=== PATIENT | female | born 1980 | race Caucasian/White ===

== ENCOUNTER → 2017-07-28 19:57 | Outpatient (CLI) | payer MEDICAID, SELFPAY | PROVIDERS: Family Provider Student in an Organized Health Care Education/Training Program; PCP Student in an Organized Health Care Education/Training Program; Visit Provider Student in an Organized Health Care Education/Training Program | DX: G47.10 Hypersomnia, unspecified (principal); R06.83 Snoring; R06.00 Dyspnea, unspecified; R53.83 Other fatigue | CPT/HCPCS: 95810 ==

== ENCOUNTER 2017-12-10 07:28 | Emergency (ER) | payer MEDICAID, SELFPAY ==
[2017-12-10 07:30] VITALS: BP 112/73; PULSE 63; RESP 18; TEMP 36.5; O2SAT 100; BMI 25.4
--- NOTE | 2017-12-10 08:05 | CT_ITS ---
STUDY: CT ABDOMEN AND PELVIS WITHOUT CONTRAST REASON FOR EXAM: Female, 37 years old. Abdominal pain, nausea, vomiting, diarrhea RADIATION DOSAGE (If Supplied By Facility): CTDIvol = ( 6.76 ) mGy, DLP = ( 314.15 ) mGycm TECHNIQUE: Transaxial images were obtained from the dome of the diaphragm to the symphysis pubis without oral contrast, and without intravenous contrast. Sagittal and coronal images were reconstructed. Individualized dose optimization techniques were used for this CT. COMPARISON: None. FINDINGS: The visualized lung bases are unremarkable. The visualized portions of the heart are within normal limits. Evaluation of the abdominal viscera is limited in the absence of intravenous contrast. Normal liver. Normal gallbladder and extrahepatic biliary system. Normal spleen. Normal pancreas. Normal bilateral adrenal glands. There may be mild early nephrocalcinosis. No well-formed stone, hydronephrosis, or ureteral calculus. Normal visualized stomach. Normal small intestine. Normal colon. There is non-visualization of the appendix. Normal abdominal aorta. Normal inferior vena cava. Normal retroperitoneum. Normal urinary bladder. Normal visualized uterus. There is a tiny fat-containing umbilical hernia. Normal osseous structures. CT/Abdomen/Pelvis without Cont IMPRESSION: No bowel obstruction or acute renal pathology. The appendix is not confidently identified. No right lower quadrant inflammatory changes are seen. Question early nephrocalcinosis. Electronically Signed: Bill Snow DO at 9:22 EDT Tel , Service support ,
[2017-12-10] MEDS: Ondansetron 4 MG/2 ML Vial IV (08:21)
[2017-12-10] MEDS: morphine 8 MG/ML Syringe IV (08:21)
[2017-12-10] MEDS: 0.9% Normal Saline 1,000 ML 1000 ML IV (08:21)
--- NOTE | 2017-12-10 08:21 | ED.DCSUM_ITS ---
- ER Visit Summary Date of Service: 12/10/17 Chief Complaint: [] Lower abdominal pain for a few days copious diarrhea vomiting currently on menstrual cycle History of Present Illness: The patient is a 37 F [] symptoms for a few days began with copious diarrhea sense of nausea abdominal cramps she started her normal menstrual cycle at about the same time, she she is not believe she is , she has had no exposures to anyone who is been ill or tainted food no antibiotics she is not prone to diarrheal illnesses she indicates she was having bowel movements constantly all day yesterday no blood the cramps persisted and she came in today for evaluation, she has no history of [employer] abnormalities, or emergency room nurse related infections, no history of hepatobiliary dysfunction colitis or colon problems generally healthy Physical Examination: [] She is complaining of lower abdominal discomfort head neck unremarkable lungs are clear heart tones normal abdomen soft there is a vague discomfort to the lower right suprapubic and left side of the abdomen there is no rebound guarding organomegaly upper lower extremities unremarkable neurologically is awake moving all 4 Test Results: [] Emergency Department Course and Treatment: [] Given all the above labs CT The patient's labs are all generally unremarkable as is the CT scan please see those reports on reevaluation she is feeling better she is able to drink water she has had no vomiting and no diarrhea at this time she understands exact etiology of all the above are unclear but she is feeling well and prefers outpatient management, she was started on Zofran, Naprosyn for the abdominal cramps bland diet return for change in symptoms she will see her PCP in the next few days Treatment Plan: [] Disposition: [] Home stable improved Impression: [] Diffuse crampy abdominal pain diarrhea improved to resolved This note was generated with [employer] dictation software. It may contain incorrect words, spelling, and punctuation that were not noted in review of the chart prior to signing ED Disposition - Plan for ED Patient: Chief Complaint: Nausea/Vomiting Referrals: Blayne Blum DO [Primary Care Provider] -
[2017-12-10 08:26] LABS: Absolute Lymphocyte Count 0.65 X10^3/ul (0.83-4.51); Absolute Neutrophil Count 5.6 X10^3/uL (2.0-7.7); Basophil# 0.01 X10^3/uL; Basophil% 0.1 % (0-1); Eosinophil# 0.06 X10^3/uL; Eosinophils% 0.9 % (0-5); Hematocrit 43.8 % (37-47); Hemoglobin 14.5 g/dl (12.0-15.0); Lymphocyte # 0.65 X10^3/ul (4.0); Lymphocyte % 9.5 % (19-41); Mean Corp Hgb Conc 33.1 g/gl (32-36); Mean Corpuscular Hgb 29.3 pg (27.0-32.0); Mean Corpuscular Volume 88.5 fL (81-99); Mean Platelet Vol. 8.9 fl (6.2-12.0); Monocyte# 0.45 X10^3/uL; Monocyte% 6.6 % (0-10); Neutrophil # 5.64 X10^3/uL (2.7-7.7); Neutrophil % 82.8 % (47-70); POSITIVE COUNT NO; POSITIVE DIFFERENTIAL NO; POSITIVE MORPHOLOGY NO; Platelet Count 200 K/mm3 (150-450); RBC Distribution Width SD 42.2 fl (35.1-43.9); Red Blood Count 4.95 M/mm3 (4.2-5.4); White Blood Count 6.8 K/mm3 (4.4-11.0)
[2017-12-10 08:37] LABS: AST(SGOT) 23 U/L (15-37); Alanine Aminotransfer ALT/SGPT 23 U/L (13-56); Alkaline Phosphatase 69 U/L (45-117); Anion Gap 7 (5-15); BUN 16 mg/dL (7-18); BUN/Creat Ratio 17.2 RATIO (10-20); Bilirubin, Direct 0.16 mg/dL (0.00-0.30); Calcium,Total 8.7 mg/dL (8.5-10.1); Chloride 107 mmol/L (98-107); Creatinine, Serum 0.93 mg/dL (0.55-1.02); EST Glomerular Filtration Rate 72 mL/min (>60); Est Glom Filt Rate - Afr Amer 88 mL/min (>60); Estimated Creatinine Clearance 60.07 ml/min; Globulin 3.9 g/dL (2.2-4.2); Glucose 104 mg/dL (74-106); Lipase 116 U/L (73-393); Potassium 3.6 mmol/L (3.5-5.1); Protein, Total 7.9 g/dL (6.4-8.2); Sodium Level 140 mmol/L (136-145)
[2017-12-10 08:44] LABS: Pregnancy, Serum, hCG Quali. NEGATIVE Negative (0-9 Nonpreg)
[2017-12-10 09:35] LABS: Color, Urine Yellow (Yellow); Glucose, Dipstick Normal (Normal); Ketone-Dipstick 50 mg/dl (Negative); Leukocyte Esterase-Dipstick 25 /ul (Negative); Nitrite-Dipstick Negative (Negative); Occult Blood-Urine 250 /ul (Negative); Protein-Dipstick 30 mg/dl (Negative); Specific Gravity, Urine 1.025 (1.002-1.030); Urine Clarity Cloudy (Clear); Urine Urobilinogen Normal (Normal)
[2017-12-10 09:41] LABS: Urine Bilirubin Dipstick 1 mg/dL (Negative)
[2017-12-10 09:42] LABS: Bacteria 2+ /hpf (None Seen); Mucous, Urine 2+ /hpf (<or=2+); Red Blood Cells-Urine 50-100 SEEN /hpf (0-5); Squamous Epithelial Cells - UA 0-5 SEEN /hpf (5-10); White Blood Cells 0-5 SEEN /hpf (0-5)
[2017-12-10] MEDS: 0.9% Normal Saline 1,000 ML 999 ML IV (10:02)
--- NOTE | 2017-12-10 10:47 | ED.DEP ---
ED Disposition - Plan for ED Patient: Chief Complaint: Nausea/Vomiting Referrals: Blayne Blum DO [Primary Care Provider] -
--- NOTE | 2017-12-10 10:50 | ED.DEP ---
ED Disposition - Plan for ED Patient: Chief Complaint: Nausea/Vomiting Instructions: ED Abdominal Pain Unkn Cause Prescriptions: Ondansetron [Zofran Odt] 4 mg PO Q8H PRN PRN #10 tab PRN Reason: Nausea Naproxen [Naprosyn] 500 mg PO BID #14 tab Referrals: Blayne Blum DO [Primary Care Provider] -
[2017-12-10 11:07] VITALS: BP 103/66; PULSE 78; RESP 16; O2SAT 100
== END 2017-12-10 11:07 | disposition home or self-care (01) ==
LOC: ED 09:12
PROVIDERS: Emergency Provider Emergency Medicine; Family Provider Student in an Organized Health Care Education/Training Program; PCP Student in an Organized Health Care Education/Training Program
DX: R10.32 Left lower quadrant pain (principal); R10.31 Right lower quadrant pain
CPT/HCPCS: 74176; 80048; 80076; 81001; 83690; 84703; 85025; 96361; 96374; 96375; 99283; J7030; A4216; J2405

== ENCOUNTER 2021-02-08 20:05 | Emergency (ER) | payer SELFPAY ==
[2021-02-08 20:06] VITALS: BP 121/75; PULSE 78; RESP 18; TEMP 36.7; O2SAT 98; BMI 32.2
--- NOTE | 2021-02-08 20:40 | CT_ITS ---
STUDY: CT Abdomen And Pelvis W/ Contrast Injection 02/08/2021 9:19 PM REASON FOR EXAM: Female, 40 years old. ABDOMINAL PAIN lower abd pain TECHNIQUE: Transaxial images were obtained without oral contrast, and with IV 100mL Isovue-300 intravenous contrast. Individualized dose optimization techniques were used for this CT. COMPARISON: 12.10.17 FINDINGS: The visualized lung bases are unremarkable. The visualized portions of the heart are within normal limits. 17 mm heterogeneous lesion in the right lobe of the liver. Normal gallbladder and extrahepatic biliary system. Normal spleen. Normal pancreas. Normal bilateral adrenal glands. No acute findings of the right kidney. No acute findings of the left kidney. Focal wall thickening of the antrum of stomach. This can suggest a gastritis. Normal small intestine. Stool throughout the colon. There is non-visualization of the appendix. There are no acute findings of the abdominal aorta. Normal inferior vena cava. Subcentimeter mesenteric lymph nodes. Normal urinary bladder. There is atrophy of the uterus. There is an umbilical hernia containing fat. There is endplate spondylosis of the vertebral body. Vacuum disc phenomenon. There is bilateral neural foraminal stenosis at L5-S1. IMPRESSION: (NOT LISTED IN ORDER OF SIGNIFICANCE) Gastritis. 17 mm heterogeneous lesion in the right lobe of the liver. ACR White Paper guidelines (Naveed, et al. JACR 2017; 14(11):0154-0793.) suggest the following. For patients with low risk of malignancy, recommend hepatic MR. For patients with high risk of malignancy (known malignancy with a propensity to metastasize to the liver, cirrhosis, and/or other hepatic risk factors), recommend hepatic MR or core biopsy. Other findings as above. Electronically Signed: Jules Medina MD at 21:22 EDT , Service support , CT/Abdomen/Pelvis W IV Cont ONLY
--- NOTE | 2021-02-08 20:41 | ED.VIS.GI ---
HPI HPI - GI History of Present Illness Chief Complaint: Abd Pain Informant: patient Abdominal Pain/Flank Pain Onset: Weeks Context: Gradual Onset Timing: Continuous Quality: Sharp and Stabbing Location: RLQ and LLQ Current Severity: Mild Maximum Severity: Mild Worsened by: Nothing Relieved by: Nothing Nausea/Vomiting/Emesis GI Symptom: Positive for Nausea; Negative for Vomiting Onset: Today Severity: Mild Diarrhea/Melena/Hematochezia GI Symptom: Negative for Diarrhea, Melena and Hematochezia Associated Symptoms Associated Symptoms: Negative for Dysuria, Frequency and Hematuria Narrative Narrative: 40-year-old female has had 1 to 2-week history of bilateral lower quadrant abdominal pain. States she said mild constipation. About a month ago she had a menstrual period of seen normal within 2 weeks later she had a more painful and heavier bleeding episode. Today she was seen in urgent care they did a urine test which was negative and UA which was negative and they wanted to be evaluated. She denies fever or chills. No weight loss. She has had decreased appetite. Denies abdominal trauma. No vaginal discharge. No prior abdominal surgeries. Prior similar symptoms: No Recent Illness/Hospitalization: No PFSH PFSH Medical History Fibromyalgia Medical History no medical history Home Medications fluoxetine 10 mg PO DAILY 12/05/14 [History Last Taken Unknown] Allergy/AdvReac Type Severity Reaction Status Date / Time bupropion HCl AdvReac Other Verified 12/10/17 07:29 [From Wellbutrin] Surgical History no surgical history Social History Smoking Status: Never smoker ROS ROS ED ROS Narrative Nausea and abdominal pain, mild constipation. Review of Systems ROS Unobtainable: Denies due to encephalopathy Constitutional Constitutional ED: Denies chills or fever(s) ENT ENT ED: Denies ear pain or sore throat Cardiovascular Cardiovascular: Denies chest pain Respiratory/Chest Respiratory/Chest: Denies cough or dyspnea Gastrointestinal Gastrointestinal: Reports abdominal pain, constipation and nausea; Denies diarrhea, melena or vomiting Genitourinary Genitourinary ED: Denies dysuria or hematuria Musculoskeletal Musculoskeletal: Denies arthralgias or myalgias Integumentary Denies rash Neurologic Neurologic: Denies headache(s) Psychiatric Psychiatric: Denies depression Endocrine Endocrinology: Denies polyuria Hematologic/Lymphatic Hematologic/Lymphatic: Denies easy bruising Allergic/Immunologic Allergic/Immunologic ED: Denies urticaria EXAM Physical Exam Narrative Exam Narrative: 40-year-old female vital signs stable afebrile. No distress. HEENT, neck, heart, lung exam normal. Abdomen soft nondistended normal bowel sounds. No peritoneal signs. Minimal suprapubic right lower quadrant tenderness. No rebound guarding rigidity. No hernia or mass. No distention. Right upper quadrant unremarkable. Normal bowel sounds. Moving all 4 extremities. Back exam nontender. Const Vital Signs: 02/08/21 20:06 02/08/21 22:12 Temperature 98.1 F Temperature Source Temporal Pulse Rate 78 81 Respiratory Rate 18 16 Blood Pressure 121/75 H 118/78 Blood Pressure Mean 90 91 Pulse Ox 98 99 Oxygen Delivery Method Room Air Positive well nourished and well developed; Negative for obese, cachectic, contractures or unkempt General Appearance ED: well developed and NAD; Negative for unkempt, cachectic, contractures or pallor Nutritional Appearance: Negative for cachectic or obese HEENT Reports moist mucous membranes normocephalic Eyes PERRL and EOMs intact bilaterally Neck no lymphadenopathy, supple and no JVD General: Negative for tenderness Resp normal respiratory effort and clear to auscultation bilaterally Auscultation: Negative for rales, rhonchi or wheezes Cardio regular rate, regular rhythm, S1 normal heart sound, S2 normal heart sound and no murmurs GI non-distended and no masses; Negative for non-tender Inspection: Negative for abdominal distention Auscultation: normoactive bowel sounds; Negative for hyperactive bowel sounds or hypoactive bowel sounds Palpation: soft and tender; Negative for guarding, rigid or rebound tenderness present Back/Spine no CVA tenderness Extremity full ROM General Extremety ED: Negative for edema or tenderness General Extremity: Negative for edema Neuro moves all extremities Sensorium / Orientation: alert, oriented to person, oriented to place and oriented to time; Negative for orientation impaired, confused, lethargic or stuporous Motor Exam: strength 5/5 throughout Psych mental status grossly normal and thought process normal Appearance: Negative for unkempt Mood & Affect: Negative for depressed or tearful Skin no wounds General Skin Exam: Negative for jaundice or pallor Lesions: no lesions Rashes: no rashes MDM MDM MDM Narrative Medical decision making narrative: 40-year-old with lower abdominal pain. It has been 1 to 2 weeks. Most likely this is an ovarian cyst. CAT scan be obtained on labs to rule out very atypical appendicitis versus diverticulitis versus ovarian cyst or other etiology. Reportedly the urgent care had a negative UA and a negative urine test. Repeat exam patient doing well. We went over all of her test results. There was an incidental finding of heterogeneous density in the right lobe of her liver which will need follow-up which I discussed with her. We do not have a specific diagnosis for her discomfort. She can follow-up with her primary care physician to discuss possible MR of her liver and an outpatient pelvic ultrasound. Lab Data Attestation: I reviewed the patient's lab results. Lab results narrative: CBC shows a white count of 7. Hemoglobin 13. Electrolytes normal gap of 8 normal BUN and creatinine. Liver enzymes normal. Serum test negative. Urinalysis is negative also. Labs: Laboratory Results - last 24 hr 02/08/21 02/08/21 02/08/21 20:30 20:30 20:30 WBC 7.3 RBC 4.53 Hgb 13.0 Hct 39.1 MCV 86.3 MCH 28.7 MCHC 33.2 RDW Std Deviation 39.4 RDW Coeff of Alida 12.4 Plt Count 272 MPV 8.9 Immature Gran % (Auto) 0.300 Neut % (Auto) 63.4 Lymph % (Auto) 28.0 [place] % (Auto) 6.2 Eos % (Auto) 1.5 Baso % (Auto) 0.6 Absolute Neuts (auto) 4.6 Absolute Lymphs (auto) 2.03 Nucleated RBC % 0 Sodium 139 Potassium 3.5 Chloride 106 Carbon Dioxide 25.0 Anion Gap 8 BUN 7 Creatinine 0.83 Estim Creat Clear Calc 65.36 Est GFR (MDRD) Af Amer 99 Est GFR (MDRD) Non-Af 82 BUN/Creatinine Ratio 8.5 L Glucose 88 Calcium 9.1 Total Bilirubin 0.80 AST 23 ALT 30 Alkaline Phosphatase 66 Total Protein 7.4 Albumin 3.9 Globulin 3.5 Albumin/Globulin Ratio 1.1 Serum , Qual NEGATIVE Urine Color Urine Clarity Urine pH Ur Specific [place] Urine Protein Urine Glucose (UA) Urine Ketones Urine Occult Blood Urine Nitrite Urine Bilirubin Urine Urobilinogen Ur Leukocyte Esterase Urine RBC Urine WBC Ur Squamous Epith Cells Urine Bacteria Urine Mucus 02/08/21 21:30 WBC RBC Hgb Hct MCV MCH MCHC RDW Std Deviation RDW Coeff of Alida Plt Count MPV Immature Gran % (Auto) Neut % (Auto) Lymph % (Auto) [place] % (Auto) Eos % (Auto) Baso % (Auto) Absolute Neuts (auto) Absolute Lymphs (auto) Nucleated RBC % Sodium Potassium Chloride Carbon Dioxide Anion Gap BUN Creatinine Estim Creat Clear Calc Est GFR (MDRD) Af Amer Est GFR (MDRD) Non-Af BUN/Creatinine Ratio Glucose Calcium Total Bilirubin AST ALT Alkaline Phosphatase Total Protein Albumin Globulin Albumin/Globulin Ratio Serum , Qual Urine Color Yellow Urine Clarity Clear Urine pH 7.0 Ur Specific [place] 1.005 Urine Protein 15 H Urine Glucose (UA) Normal Urine Ketones 50 H Urine Occult Blood Negative Urine Nitrite Negative Urine Bilirubin Negative Urine Urobilinogen Normal Ur Leukocyte Esterase 25 H Urine RBC 0 SEEN Urine WBC 0-5 SEEN Ur Squamous Epith Cells 0-5 SEEN Urine Bacteria 0 SEEN Urine Mucus 0 SEEN Radiography Diagnostic Testing: Clinical Impression(s) from Imaging Studies Abdomen/Pelvis CT 02/08/21 20:40 Discharge Plan Triage Chief Complaint: Abd Pain ED Provider: Gregorio Cunha Dx/Rx/DC Orders Clinical Impression: Abdominal pain Instructions: ED Abdominal Pain Unkn Cause Fem Prescriptions: No Action fluoxetine 20 MG capsule 10 mg PO DAILY RF: 0 Primary Care Provider: Blayne Blum Referrals: Blayne Blum DO [Primary Care Provider] - 3-5 Days Activity Restrictions/Additional Instructions: Call and follow-up with your doctor. They can get an outpatient ultrasound to determine if there is any ovarian cyst. The CAT scan did not show anything specific causing your pain. There was an incidental finding on your liver which is most likely a cyst or possibly hemangioma. The team may want to do further imaging. Your labs today were all unremarkable. Disposition Disposition: Home, Self Care
[2021-02-08] MEDS: 0.9% Normal Saline 1,000 ML 1000 ML IV (20:45)
[2021-02-08 20:59] LABS: Internal QC Validated? YES +Cl - CLEAR BKGD; Pregnancy, Serum, hCG Quali. NEGATIVE Negative
[2021-02-08 21:00] LABS: Absolute Lymphocyte Count 2.03 X10^3/uL (0.83-4.51); Absolute Neutrophil Count 4.6 X10^3/uL (2.0-7.7); Basophil# 0.04 X10^3/uL; Basophil% 0.6 % (0-1); Eosinophil# 0.11 X10^3/uL; Eosinophils% 1.5 % (0-5); Hematocrit 39.1 % (37-47); Lymphocyte # 2.03 X10^3/ul (0.83-4.51); Mean Corp Hgb Conc 33.2 g/dL (32-36); Mean Corpuscular Hgb 28.7 pg (27.0-32.0); Mean Corpuscular Volume 86.3 fL (81-99); Mean Platelet Vol. 8.9 fl (6.2-12.0); Monocyte# 0.45 X10^3/uL; Monocyte% 6.2 % (0-10); NRBC Flagged by Analyzer 0 % (0-5); Neutrophil % 63.4 % (47-70); Platelet Count 272 K/mm3 (150-450); RBC Distribution Width CV 12.4 % (11.6-14.6); RBC Distribution Width SD 39.4 fl (35.1-43.9); Red Blood Count 4.53 M/mm3 (4.2-5.4); White Blood Count 7.3 K/mm3 (4.4-11.0)
[2021-02-08 21:07] LABS: ALB/GLOB Ratio 1.1 RATIO (0.9-2.4); AST(SGOT) 23 U/L (15-37); Alanine Aminotransfer ALT/SGPT 30 U/L (13-56); Albumin, Serum 3.9 g/dL (3.2-5.0); Alkaline Phosphatase 66 U/L (45-117); Anion Gap 8 (5-15); BUN 7 mg/dL (7-18); BUN/Creat Ratio 8.5 RATIO (10-20); Calcium,Total 9.1 mg/dL (8.5-10.1); Chloride 106 mmol/L (98-107); Creatinine, Serum 0.83 mg/dL (0.55-1.02); EST Glomerular Filtration Rate 82 mL/min (>60); Est Glom Filt Rate - Afr Amer 99 mL/min (>60); Estimated Creatinine Clearance 65.36 ml/min; Globulin 3.5 g/dL (2.2-4.2); Glucose 88 mg/dL (74-106); Potassium 3.5 mmol/L (3.5-5.1); Protein, Total 7.4 g/dL (6.4-8.2); Sodium Level 139 mmol/L (136-145)
[2021-02-08 21:40] LABS: Bacteria 0 SEEN /hpf (None Seen); Mucous, Urine 0 SEEN /hpf (<or=2+); Red Blood Cells-Urine 0 SEEN /hpf (0-5)
[2021-02-08 21:44] LABS: Color, Urine Yellow (Yellow); Glucose, Dipstick Normal (Normal); Ketone-Dipstick 50 mg/dl (Negative); Leukocyte Esterase-Dipstick 25 /ul (Negative); Nitrite-Dipstick Negative (Negative); Occult Blood-Urine Negative /ul (Negative); Protein-Dipstick 15 mg/dl (Negative); Specific Gravity, Urine 1.005 (1.002-1.030); Urine Bilirubin Dipstick Negative (Negative); Urine Clarity Clear (Clear); Urine Urobilinogen Normal (Normal)
[2021-02-08 21:52] LABS: Squamous Epithelial Cells - UA 0-5 SEEN /hpf (5-10); White Blood Cells 0-5 SEEN /hpf (0-5)
[2021-02-08 22:12] VITALS: BP 118/78; PULSE 81; RESP 16; O2SAT 99
[2021-02-08 22:38] VITALS: BP 118/78; PULSE 81; RESP 16; O2SAT 99
== END 2021-02-08 22:38 | disposition home or self-care (01) ==
PROVIDERS: Emergency Provider Emergency Medicine; PCP Student in an Organized Health Care Education/Training Program
DX: R10.30 Lower abdominal pain, unspecified (principal); M79.7 Fibromyalgia; Z79.899 Other long term (current) drug therapy
CPT/HCPCS: 74177; 80053; 81001; 84703; 85025; 96360; 96361; 99283; J7030; Q9967; A4216

== ENCOUNTER 2021-02-09 22:01 | Emergency (ER) | payer SELFPAY ==
[2021-02-09 22:02] VITALS: BP 116/64; PULSE 70; RESP 18; TEMP 36.6; O2SAT 97; BMI 32.2
--- NOTE | 2021-02-09 22:49 | US_ITS ---
STUDY: ULTRASOUND OF THE FEMALE PELVIS - COMPLETE REASON FOR EXAM: Female, 40 years old. pain -- prev ct 02-08-21 LMP: 01/20/2021. TECHNIQUE: Transabdominal and Transvaginal TECHNICAL QUALITY: Adequate. COMPARISON: None. FINDINGS: The uterus is anteverted and is in a midline position. The uterus measures 7.7 x 4.8 x 4.0 cm. Normal uterine cervix. The endometrium measures 9.8 mm in thickness, and is hyperechoic. There is no demonstrated endometrial mass. There is no demonstrated myometrial mass. I.U.D. - The patient does not have an I.U.D. The right ovary is visualized. The right ovary measures 3.7 x 1.8 x 2.8 cm. There is a right ovarian complex lesion measuring 1.6 x 1.6 x 1.6 cm could represent hemorrhagic cyst versus solid lesion. There is no visualized right adnexal mass or complex lesion. There is normal arterial and normal venous vascularity. The left ovary is visualized. The left ovary measures 3.1 x 2.3 x 2.7 cm. There is no left ovarian cyst or ovarian mass. There is no visualized left adnexal mass or complex lesion. There is normal arterial and normal venous vascularity. There is no fluid in the cul-de-sac. The volume of the bladder was 17.39 ml. US/Pelvic (Non ) IMPRESSION: Small right ovarian hemorrhagic cyst versus corpus luteum cyst versus solid lesion measuring 1.6 cm. Recommend follow-up ultrasound in 4-6 weeks, different phase of menstrual cycle to evaluate/document resolution. Remainder of the pelvic ultrasound unremarkable. Electronically Signed: Chantelle Voss MD at 1:24 EDT , Service support ,
--- NOTE | 2021-02-09 22:56 | ED.VIS.GI ---
HPI HPI - GI History of Present Illness Chief Complaint: Abd Pain Informant: patient Narrative Narrative: Patient is a 40-year-old female presenting with abdominal pain. Patient was seen in the ER yesterday for the same complaint. She knows to the past 2-1/2-week she has had pain in her lower abdomen. She states is been worse over the past week and became significantly worse today. She had associated nausea but no vomiting. The nausea is been going on for the past week. She had decreased oral intake. Patient has had increased feeling of needing to urinate but only going up a small amount. She denies any burning with urination. States the pain is in her lower abdomen and previously had been in her left lower abdomen rating to her back but states more in her right side radiating to her back. She notes her symptoms started after her menstrual cycle 2 weeks ago which was heavier and more painful than normal. Patient states she is not sexually active and is not concerned for . Patient [place] any fever or night sweats. She took ibuprofen today with no relief of her symptoms. Prior to the last few days her pain was better when she was laying down but is now no longer helping. Chart review from yesterday shows that patient had a work-up including blood work, urine and CT of the abdomen and pelvis. There is nonvisualization of the CT but no acute process was seen except for nonspecific liver mass requiring further evaluation. [facility] Medical History Fibromyalgia Home Medications fluoxetine 10 mg PO DAILY 12/05/14 [History Last Taken Unknown] hydrocodone-acetaminophen 1 tab PO Q6H PRN 3 Days #12 tab 02/10/21 [Rx Last Taken Unknown] ondansetron 4 mg PO Q6H PRN #10 tab 02/10/21 [Rx Last Taken Unknown] Allergy/AdvReac Type Severity Reaction Status Date / Time bupropion HCl AdvReac Other Verified 02/09/21 22:04 [From Wellbutrin] Social History Smoking Status: Never smoker ROS ROS ED Constitutional Constitutional ED: Reports other Details: Decreased oral intake ; Denies chills, fever(s) or malaise Eyes Eyes: Denies blurry vision or loss of vision ENT ENT ED: Denies rhinorrhea or sore throat Cardiovascular Cardiovascular: Denies chest pain or dizziness Respiratory/Chest Respiratory/Chest: Denies cough or dyspnea Gastrointestinal Gastrointestinal: Reports abdominal pain and nausea; Denies diarrhea or vomiting Genitourinary Genitourinary ED: Reports urinary frequency; Denies dysuria or hematuria Musculoskeletal Musculoskeletal: Denies arthralgias or myalgias Integumentary Denies rash or wounds Neurologic Neurologic: Denies focal weakness or headache(s) Psychiatric Psychiatric: Denies anxiety or behavioral changes EXAM Physical Exam Const Vital Signs: 02/09/21 22:02 02/10/21 01:17 02/10/21 03:13 Temperature 97.8 F Temperature Source Temporal Pulse Rate 70 78 68 Respiratory Rate 18 18 16 Blood Pressure 116/64 112/69 114/76 Blood Pressure Mean 81 83 Pulse Ox 97 96 98 Oxygen Delivery Method Room Air Room Air Positive well nourished and well developed General Appearance ED: well developed HEENT normocephalic and atraumatic Eyes PERRL Neck supple and no JVD Resp normal respiratory effort and clear to auscultation bilaterally Cardio regular rate, regular rhythm and no murmurs GI Inspection: Negative for abdominal distention Palpation: soft and tender RLQ and suprapubic; Negative for guarding, rigid or rebound tenderness present Back/Spine no CVA tenderness Extremity full ROM General Extremety ED: Yes edema General Extremity: edema Neuro Sensorium / Orientation: alert and oriented to person Psych mental status grossly normal Skin Lesions: no lesions Rashes: no rashes MDM MDM MDM Narrative Medical decision making narrative: Patient evaluated for worsening lower abdominal pain. Patient had an evaluation yesterday for the same complaint. At that time she had a normal CT, CBC and CMP. CT reviewed by myself which does seem to show some abnormality in the pelvic region however the GI tract looks normal. I will obtain a pelvic ultrasound question given the worsening of her pain to rule out ovarian torsion. Patient is given morphine, IV fluids and Zofran in the ER. She is then given Toradol for pain. Her lactate is normal and her work-up is largely negative on lab work. Ultrasound does not show any torsion but does show a small right ovarian hemorrhagic cyst versus corpus luteal cyst versus solid lesion measuring 1.6 cm. I suspect this is the cause of her pain. Patient is informed of this findings and need for outpatient follow-up. She is referred to [facility]. She is given a short course of [place] for pain control on discharge as well as Zofran. Patient is counseled on signs and symptoms requiring return to the emergency room. Patient verbalizes agreement and understand this plan. Patient discharged home in stable and improved condition. Lab Data Labs: Laboratory Results - last 24 hr 02/09/21 02/09/21 02/09/21 23:08 23:08 23:08 WBC 6.7 RBC 4.34 Hgb 12.9 Hct 37.3 MCV 85.9 MCH 29.7 MCHC 34.6 RDW Std Deviation 39.8 RDW Coeff of Alida 12.7 Plt Count 257 MPV 9.1 Immature Gran % (Auto) 0.800 Neut % (Auto) 54.7 Lymph % (Auto) 35.1 [place] % (Auto) 6.6 Eos % (Auto) 2.0 Baso % (Auto) 0.8 Absolute Neuts (auto) 3.7 Absolute Lymphs (auto) 2.34 Nucleated RBC % 0 Sodium 140 Potassium 3.5 Chloride 107 Carbon Dioxide 26.0 Anion Gap 7 BUN 8 Creatinine 0.74 Estim Creat Clear Calc 73.31 Est GFR (MDRD) Af Amer 112 Est GFR (MDRD) Non-Af 93 BUN/Creatinine Ratio 10.8 Glucose 95 Lactic Acid 1.0 Calcium 8.8 Total Bilirubin 0.60 AST 19 ALT 27 Alkaline Phosphatase 67 Total Protein 7.2 Albumin 3.6 Globulin 3.6 Albumin/Globulin Ratio 1.0 Lipase 94 Urine Color Urine Clarity Urine pH Ur Specific [place] Urine Protein Urine Glucose (UA) Urine Ketones Urine Occult Blood Urine Nitrite Urine Bilirubin Urine Urobilinogen Ur Leukocyte Esterase Urine RBC Urine WBC Ur Squamous Epith Cells Urine Bacteria Urine Mucus 02/09/21 23:10 WBC RBC Hgb Hct MCV MCH MCHC RDW Std Deviation RDW Coeff of Alida Plt Count MPV Immature Gran % (Auto) Neut % (Auto) Lymph % (Auto) [place] % (Auto) Eos % (Auto) Baso % (Auto) Absolute Neuts (auto) Absolute Lymphs (auto) Nucleated RBC % Sodium Potassium Chloride Carbon Dioxide Anion Gap BUN Creatinine Estim Creat Clear Calc Est GFR (MDRD) Af Amer Est GFR (MDRD) Non-Af BUN/Creatinine Ratio Glucose Lactic Acid Calcium Total Bilirubin AST ALT Alkaline Phosphatase Total Protein Albumin Globulin Albumin/Globulin Ratio Lipase Urine Color Yellow Urine Clarity Sl. Cloudy Urine pH 6.5 Ur Specific [place] 1.015 Urine Protein 15 H Urine Glucose (UA) Normal Urine Ketones 5 H Urine Occult Blood 10 H Urine Nitrite Negative Urine Bilirubin Negative Urine Urobilinogen Normal Ur Leukocyte Esterase 100 H Urine RBC 0-5 SEEN Urine WBC 10-25 SEEN Ur Squamous Epith Cells 5-10 SEEN Urine Bacteria 0 SEEN Urine Mucus 0 SEEN Radiography Diagnostic Testing: Clinical Impression(s) from Imaging Studies Pelvis Ultrasound 02/09/21 22:49 IMPRESSION: Small right ovarian hemorrhagic cyst versus corpus luteum cyst versus solid lesion measuring 1.6 cm. Recommend follow-up ultrasound in 4-6 weeks, different phase of menstrual cycle to evaluate/document resolution. Remainder of the pelvic ultrasound unremarkable. Electronically Signed: Chantelle Voss MD at 1:24 EDT , Service support , Discharge Plan Triage Chief Complaint: Abd Pain ED Provider: Sasha Martin Dx/Rx/DC Orders Clinical Impression: Complex cyst of right ovary, Abdominal pain, RLQ Instructions: ED Ovarian Cyst Prescriptions: New hydrocodone-acetaminophen 5-325 mg tablet 1 tab PO Q6H PRN (Reason: pain) 3 Days Qty: 12 RF: 0 ondansetron 4 mg tablet,disintegrating 4 mg PO Q6H PRN (Reason: nausea and vomiting) Qty: 10 RF: 0 No Action fluoxetine 20 MG capsule 10 mg PO DAILY RF: 0 Primary Care Provider: Blayne Blum Referrals: Blayne Blum DO [Primary Care Provider] - Hetal Norris MD [STAFF PHYSICIAN] - Activity Restrictions/Additional Instructions: I suspect your pain is ovarian in nature. Continue to take ibuprofen 600 mg [id number] every 6 hours. In addition you may take the pain medication prescribed. Follow-up with your primary care doctor for repeat ultrasound as the pelvic ultrasound shows cyst versus possible small mass. This needs to be evaluated further Disposition Disposition: Home, Self Care Discharge Date/Time: 02/10/21 03:14
[2021-02-09] MEDS: Ondansetron 4 MG/2 ML Vial IV (23:06)
[2021-02-09] MEDS: 0.9% Normal Saline 1,000 ML 1000 ML IV (23:06)
[2021-02-09] MEDS: Morphine 4 MG/ML Syringe IV (23:06)
[2021-02-09 23:17] LABS: Bacteria 0 SEEN /hpf (None Seen); Mucous, Urine 0 SEEN /hpf (<or=2+)
[2021-02-09 23:21] LABS: Color, Urine Yellow (Yellow); Glucose, Dipstick Normal (Normal); Ketone-Dipstick 5 mg/dl (Negative); Leukocyte Esterase-Dipstick 100 /ul (Negative); Nitrite-Dipstick Negative (Negative); Occult Blood-Urine 10 /ul (Negative); Protein-Dipstick 15 mg/dl (Negative); Specific Gravity, Urine 1.015 (1.002-1.030); Urine Bilirubin Dipstick Negative (Negative); Urine Clarity Sl. Cloudy (Clear); Urine Urobilinogen Normal (Normal); Urine pH 6.5 (5.0 - 8.0)
[2021-02-09 23:28] LABS: Red Blood Cells-Urine 0-5 SEEN /hpf (0-5); Squamous Epithelial Cells - UA 5-10 SEEN /hpf (5-10); White Blood Cells 10-25 SEEN /hpf (0-5)
[2021-02-09 23:32] LABS: Absolute Lymphocyte Count 2.34 X10^3/uL (0.83-4.51); Absolute Neutrophil Count 3.7 X10^3/uL (2.0-7.7); Basophil# 0.05 X10^3/uL; Basophil% 0.8 % (0-1); Eosinophil# 0.13 X10^3/uL; Hematocrit 37.3 % (37-47); Hemoglobin 12.9 g/dL (12.0-15.0); Lymphocyte # 2.34 X10^3/ul (0.83-4.51); Lymphocyte % 35.1 % (19-41); Mean Corp Hgb Conc 34.6 g/dL (32-36); Mean Corpuscular Hgb 29.7 pg (27.0-32.0); Mean Corpuscular Volume 85.9 fL (81-99); Mean Platelet Vol. 9.1 fl (6.2-12.0); Monocyte# 0.44 X10^3/uL; Monocyte% 6.6 % (0-10); NRBC Flagged by Analyzer 0 % (0-5); Neutrophil # 3.65 X10^3/uL (2.7-7.7); Neutrophil % 54.7 % (47-70); Platelet Count 257 K/mm3 (150-450); RBC Distribution Width CV 12.7 % (11.6-14.6); RBC Distribution Width SD 39.8 fl (35.1-43.9); Red Blood Count 4.34 M/mm3 (4.2-5.4); White Blood Count 6.7 K/mm3 (4.4-11.0)
[2021-02-09 23:37] LABS: AST(SGOT) 19 U/L (15-37); Alanine Aminotransfer ALT/SGPT 27 U/L (13-56); Albumin, Serum 3.6 g/dL (3.2-5.0); Alkaline Phosphatase 67 U/L (45-117); Anion Gap 7 (5-15); BUN 8 mg/dL (7-18); BUN/Creat Ratio 10.8 RATIO (10-20); Calcium,Total 8.8 mg/dL (8.5-10.1); Chloride 107 mmol/L (98-107); Creatinine, Serum 0.74 mg/dL (0.55-1.02); EST Glomerular Filtration Rate 93 mL/min (>60); Est Glom Filt Rate - Afr Amer 112 mL/min (>60); Estimated Creatinine Clearance 73.31 ml/min; Globulin 3.6 g/dL (2.2-4.2); Glucose 95 mg/dL (74-106); Lipase 94 U/L (73-393); Potassium 3.5 mmol/L (3.5-5.1); Protein, Total 7.2 g/dL (6.4-8.2); Sodium Level 140 mmol/L (136-145)
[2021-02-10] MEDS: Ketorolac 15 MG/ML Vial IV (01:01)
[2021-02-10 01:17] VITALS: BP 112/69; PULSE 78; RESP 18; O2SAT 96
[2021-02-10] MEDS: HYDROcodone Bitartrate/Apap 5/325 Tablet PO (02:53)
[2021-02-10 03:13] VITALS: BP 114/76; PULSE 68; RESP 16; O2SAT 98
== END 2021-02-10 03:14 | disposition home or self-care (01) ==
PROVIDERS: Emergency Provider Emergency Medicine; PCP Student in an Organized Health Care Education/Training Program
DX: R10.31 Right lower quadrant pain (principal); N83.201 Unspecified ovarian cyst, right side; M79.7 Fibromyalgia; Z79.899 Other long term (current) drug therapy
CPT/HCPCS: 76856; 80053; 81001; 83605; 83690; 85025; 93976; 96361; 96374; 96375; 99284; J7030; A4216; J2405

== ENCOUNTER 2021-09-11 09:12 | Emergency (ER) | payer SELFPAY ==
[2021-09-11 09:14] VITALS: BP 118/76; PULSE 98; RESP 17; TEMP 38.9; O2SAT 98; BMI 32.1
--- NOTE | 2021-09-11 09:23 | ED.VIS.FEGU ---
HPI HPI - Female History of Present Illness Chief Complaint: Complaint Narrative Narrative: 40-year-old female with several days of dysuria and urinary frequency. She states that today she developed chills and body aches and feels generally unwell. She has some mild nausea but is not vomiting. She reports left-sided suprapubic pain and left flank pain. This is progressive and was not acute in onset. She presents with a fever of 102.1 Fahrenheit. She states he spoke with her primary care physician who wanted her to be tested for COVID due to the body aches and chills. Patient has a distant history of UTI and she states it was really bad. [facility] Medical History Fibromyalgia Home Medications fluoxetine 10 mg PO DAILY 12/05/14 [History Last Taken Unknown] ondansetron 4 mg PO Q8H PRN #10 tab 09/11/21 [Rx Last Taken Unknown] Allergy/AdvReac Type Severity Reaction Status Date / Time bupropion HCl AdvReac Other Verified 09/11/21 09:13 [From Wellbutrin] Social History Smoking Status: Never smoker ROS [facility] ED Constitutional Constitutional ED: Reports chills and fever(s) Eyes Eyes: Denies blurry vision or diplopia ENT ENT ED: Denies rhinorrhea or sore throat Cardiovascular Cardiovascular: Denies chest pain or palpitations Respiratory/Chest Respiratory/Chest: Denies cough, dyspnea or stridor Gastrointestinal Gastrointestinal: Reports abdominal pain and nausea; Denies diarrhea Genitourinary Genitourinary ED: Reports dysuria and urinary frequency Musculoskeletal Musculoskeletal: Reports myalgias; Denies arthralgias or neck pain Integumentary Denies rash Neurologic Neurologic: Reports headache(s); Denies paresthesias or weakness Psychiatric Psychiatric: Denies anxiety or depression EXAM Physical Exam Const Vital Signs: 09/11/21 09:14 Temperature 102.1 F H Temperature Source Oral Pulse Rate 98 Respiratory Rate 17 Blood Pressure 118/76 Blood Pressure Mean 90 Pulse Ox 98 Oxygen Delivery Method Room Air Positive well nourished General Appearance ED: NAD; Negative for pallor HEENT Reports moist mucous membranes Negative for trauma Eyes PERRL and EOMs intact bilaterally Neck no lymphadenopathy and supple Resp normal respiratory effort and clear to auscultation bilaterally Cardio regular rate and regular rhythm GI GI Narrative: Suprapubic tenderness and left lower quadrant tenderness. There is left-sided CVA tenderness which is mild. Back/Spine General Back: CVA tenderness left Neuro oriented x3 Sensorium / Orientation: alert Psych mental status grossly normal Skin no rashes or lesions noted General Skin Exam: Negative for jaundice or pallor MDM MDM MDM Narrative Medical decision making narrative: Patient presenting with fever, chills, body aches. She initially states that she has urinary symptoms concerned she has a urinary tract infection. She does not have any diarrhea but states he might be a little constipated. I obtained a urinalysis which is negative for infection. CBC shows a normal white blood cell count with lymphopenia. COVID testing today is positive. Influenza negative. Patient still having considerable flank pain and CVA tenderness and I will obtain imaging. CBC and BMP are unremarkable. CT of the abdomen pelvis is obtained and does show a small left ovarian cyst. This is likely the source of the patient's pain. There is also a noted small hemangioma in the liver. Patient does not have pain here. Patient counseled Tylenol and ibuprofen for pain for her cyst as well as treatment of her symptoms of COVID for fever and chills. Patient is to drink plenty of fluids. Patient was given Zofran for home. Impression: 1. Dysuria unknown cause 2. Left sided ovarian cyst 3. COVID-19 4. Febrile illness 5. Nausea Lab Data Attestation: I reviewed the patient's lab results. Labs: Laboratory Results - last 24 hr 09/11/21 09/11/21 09/11/21 09:25 09:38 09:38 WBC 4.6 RBC 4.43 Hgb 13.1 Hct 38.6 MCV 87.1 MCH 29.6 MCHC 33.9 RDW Std Deviation 41.0 RDW Coeff of Alida 12.9 Plt Count 239 MPV 8.6 Immature Gran % (Auto) 0.400 Neut % (Auto) 72.8 H Lymph % (Auto) 12.7 L [place] % (Auto) 12.5 H Eos % (Auto) 0.9 Baso % (Auto) 0.7 Absolute Neuts (auto) 3.3 Absolute Lymphs (auto) 0.58 L Nucleated RBC % 0 Differential Comment Platelet Estimate ADEQUATE RBC Morphology NORM C+C Sodium 136 Potassium 3.8 Chloride 103 Carbon Dioxide 27.0 Anion Gap 6 BUN 11 Creatinine 0.81 Estim Creat Clear Calc 66.98 Est GFR (MDRD) Af Amer 101 Est GFR (MDRD) Non-Af 83 BUN/Creatinine Ratio 13.6 Glucose 98 Calcium 9.0 Urine Color Yellow Urine Clarity Sl. Cloudy Urine pH 6.0 Ur Specific [place] 1.010 Urine Protein Negative Urine Glucose (UA) Normal Urine Ketones Negative Urine Occult Blood Negative Urine Nitrite Negative Urine Bilirubin Negative Urine Urobilinogen Normal Ur Leukocyte Esterase Negative Urine RBC 0 SEEN Urine WBC 0 SEEN Ur Squamous Epith Cells 0 SEEN Urine Bacteria 0 SEEN Urine Mucus 0 SEEN Urine Test Negative Radiography Diagnostic Testing: Clinical Impression(s) from Imaging Studies Abdomen/Pelvis CT 09/11/21 09:46 IMPRESSION: Small cyst in the left ovary. Follicles are seen in the right ovary. Findings suggestive of a small hemangioma in the posterior aspect of the right lobe of the liver. Electronically Signed: Zander Wood MD at 10:37 EDT , Discharge Plan Triage Chief Complaint: Complaint ED Provider: Elias Messina Dx/Rx/DC Orders Instructions: Coronavirus Disease 2019 (COVID-19): Caring for Yourself or Others, ED Ovarian Cyst Prescriptions: New ondansetron 4 mg tablet,disintegrating 4 mg PO Q8H PRN (Reason: nausea and vomiting) Qty: 10 RF: 0 No Action fluoxetine 20 MG capsule 10 mg PO DAILY RF: 0 Primary Care Provider: Blyane Blum Referrals: Blayne Blum, [Primary Care Provider] - Disposition Disposition: Home, Self Care
[2021-09-11 09:35] LABS: Bacteria 0 SEEN /hpf (None Seen); Mucous, Urine 0 SEEN /hpf (<or=2+); Red Blood Cells-Urine 0 SEEN /hpf (0-5); Squamous Epithelial Cells - UA 0 SEEN /hpf (5-10); White Blood Cells 0 SEEN /hpf (0-5)
[2021-09-11 09:37] LABS: Color, Urine Yellow (Yellow); Glucose, Dipstick Normal (Normal); Ketone-Dipstick Negative (Negative); Leukocyte Esterase-Dipstick Negative /ul (Negative); Nitrite-Dipstick Negative (Negative); Occult Blood-Urine Negative /ul (Negative); Protein-Dipstick Negative (Negative); Urine Bilirubin Dipstick Negative (Negative); Urine Clarity Sl. Cloudy (Clear); Urine Urobilinogen Normal (Normal)
[2021-09-11] MEDS: 0.9% Normal Saline 1,000 ML 999 ML IV (09:40)
[2021-09-11] MEDS: Ondansetron 4 MG/2 ML Vial IV (09:40)
[2021-09-11] MEDS: Ketorolac 15 MG/ML Vial IV (09:40)
[2021-09-11 09:44] LABS: Internal QC Validated? YES +Cl - CLEAR BKGD; Pregnancy, Urine Negative Negative
--- NOTE | 2021-09-11 09:46 | CT_ITS ---
STUDY: CT ABDOMEN AND PELVIS WITH AND WITHOUT CONTRAST REASON FOR EXAM: Female, 40 years old. Left flank pain. Headaches and chills. Covid positive. RADIATION DOSAGE (If Supplied By Facility): CTDIvol = ( 12.27 ) mGy, DLP = ( 1350.81 ) mGycm TECHNIQUE: Transaxial images were obtained from the dome of the diaphragm to the symphysis pubis without oral contrast. 100 CC ISOVUE 300 was administered. Sagittal and coronal images were reconstructed. Individualized dose optimization techniques were used for this CT. COMPARISON: Comparison is made with prior study 02/08/2021. FINDINGS: The visualized lung bases are unremarkable. The visualized portions of the heart are within normal limits. Findings suggestive of a 1.2 cm hemangioma in the posterior aspect of the dome of the right lobe of the liver. Normal gallbladder and extrahepatic biliary system. Normal spleen. Normal pancreas. Normal bilateral adrenal glands. Normal right kidney. Normal left kidney. Normal visualized stomach. Normal small intestine. Normal colon. The appendix is visualized and appears normal. Normal abdominal aorta. Normal inferior vena cava. Normal retroperitoneum. Normal urinary bladder. There is a 2.2 cm cyst in the left ovary. Small follicles are seen in the right ovary. Normal abdominal wall. Normal osseous structures. CT/CT Abd/Pelvis W/WO Contrast IMPRESSION: Small cyst in the left ovary. Follicles are seen in the right ovary. Findings suggestive of a small hemangioma in the posterior aspect of the right lobe of the liver. Electronically Signed: Zander Wood MD at 10:37 EDT ,
[2021-09-11 09:50] LABS: Absolute Lymphocyte Count 0.58 X10^3/uL (0.83-4.51); Absolute Neutrophil Count 3.3 X10^3/uL (2.0-7.7); Basophil# 0.03 X10^3/uL; Basophil% 0.7 % (0-1); Eosinophil# 0.04 X10^3/uL; Eosinophils% 0.9 % (0-5); Hematocrit 38.6 % (37-47); Hemoglobin 13.1 g/dL (12.0-15.0); Lymphocyte # 0.58 X10^3/ul (0.83-4.51); Lymphocyte % 12.7 % (19-41); Mean Corp Hgb Conc 33.9 g/dL (32-36); Mean Corpuscular Hgb 29.6 pg (27.0-32.0); Mean Corpuscular Volume 87.1 fL (81-99); Mean Platelet Vol. 8.6 fl (6.2-12.0); Monocyte# 0.57 X10^3/uL; Monocyte% 12.5 % (0-10); NRBC Flagged by Analyzer 0 % (0-5); Neutrophil # 3.33 X10^3/uL (2.7-7.7); Neutrophil % 72.8 % (47-70); POSITIVE DIFFERENTIAL YES; Platelet Count 239 K/mm3 (150-450); RBC Distribution Width CV 12.9 % (11.6-14.6); Red Blood Count 4.43 M/mm3 (4.2-5.4); White Blood Count 4.6 K/mm3 (4.4-11.0)
[2021-09-11 09:56] LABS: Differential Indicated SCAN CRITERIA MET
[2021-09-11 10:13] LABS: Anion Gap 6 (5-15); BUN 11 mg/dL (7-18); BUN/Creat Ratio 13.6 RATIO (10-20); Chloride 103 mmol/L (98-107); Creatinine, Serum 0.81 mg/dL (0.55-1.02); EST Glomerular Filtration Rate 83 mL/min (>60); Est Glom Filt Rate - Afr Amer 101 mL/min (>60); Estimated Creatinine Clearance 66.98 ml/min; Glucose 98 mg/dL (74-106); Potassium 3.8 mmol/L (3.5-5.1); Sodium Level 136 mmol/L (136-145)
[2021-09-11] MEDS: Morphine 4 MG/ML Syringe IV (10:31)
[2021-09-11 10:35] LABS: Platelet Estimate ADEQUATE (ADEQ); Red Cell Morphology NORM C+C NORMAL (NORM C&C)
[2021-09-11 11:43] VITALS: BP 122/74; PULSE 76; RESP 18; O2SAT 94
[2021-09-11 11:44] VITALS: BP 122/74; PULSE 74; RESP 18; TEMP 37.7; O2SAT 94
== END 2021-09-11 11:46 | disposition home or self-care (01) ==
PROVIDERS: Emergency Provider Student in an Organized Health Care Education/Training Program; PCP Student in an Organized Health Care Education/Training Program; Visit Provider Student in an Organized Health Care Education/Training Program
DX: U07.1 COVID-19 (principal); R30.0 Dysuria; N83.202 Unspecified ovarian cyst, left side; R50.9 Fever, unspecified; R11.0 Nausea; Z79.899 Other long term (current) drug therapy
CPT/HCPCS: 74178; 80048; 81001; 81025; 85025; 87428; 96374; 96375; 99283; J7030; Q9967; J2405

== ENCOUNTER → 2021-09-17 | Outpatient (CLI) | payer SELFPAY ==
[2021-09-17 14:41] LABS: D-Dimer Quantitative (DVT/PE) < 0.27 FEU/ug/m (0.27-0.49)
== END | disposition home or self-care (01) ==
LOC: LABSPEC 14:13
PROVIDERS: PCP Student in an Organized Health Care Education/Training Program; Referring Provider Nurse Practitioner Primary Care; Visit Provider Nurse Practitioner Primary Care
DX: M54.9 Dorsalgia, unspecified (principal); R07.9 Chest pain, unspecified; R06.02 Shortness of breath
CPT/HCPCS: 85379

== ENCOUNTER 2022-12-09 15:11 | Emergency (ER) | payer SELFPAY ==
[2022-12-09 15:12] VITALS: BP 117/59; PULSE 64; RESP 18; TEMP 36.9; O2SAT 96; BMI 30.4
--- NOTE | 2022-12-09 15:28 | ED.VIS.GI ---
HPI HPI - GI History of Present Illness Chief Complaint: Abd Pain Detail of Chief Complaint: Left-sided abdominal pain last several days. Informant: patient Abdominal Pain/Flank Pain Onset: Days Context: Gradual Onset Timing: Continuous Quality: Aching Location: LUQ and LLQ Current Severity: Mild Maximum Severity: Moderate Worsened by: Nothing Nausea/Vomiting/Emesis GI Symptom: Positive for Nausea; Negative for Vomiting Onset: Days Severity: Mild Diarrhea/Melena/Hematochezia GI Symptom: Negative for Diarrhea, Melena or Hematochezia Associated Symptoms Associated Symptoms: Negative for Dysuria, Frequency, Hematuria or Urgency Narrative Narrative: 42-year-old female history of ovarian cyst and fibromyalgia and depression. Complaining of left-sided abdominal pain. Started on and then again on Thursday and has been constant since then. Associated nausea no vomiting or diarrhea. No constipation. No dysuria. No history of kidney stones. Is on her menstrual period at this time. No history of kidney stone. No prior abdominal surgery. States it does feel like the pain she had in the past with ovarian cyst. Prior similar symptoms: Yes Recent Illness/Hospitalization: No PFSH PFSH Medical History (Updated 12/09/22 @ 19:[address] Gregorio Cunha MD) Anxiety Depression Fibromyalgia Ovarian cyst Home Medications fluoxetine 20 mg capsule 10 mg PO DAILY 12/05/14 [History Last Taken 12/08/22] ondansetron 4 mg disintegrating tablet 4 mg PO Q8H PRN nausea and vomiting #10 tabs 09/11/21 [Rx Last Taken Unknown] Allergy/AdvReac Type Severity Reaction Status Date / Time bupropion HCl AdvReac Other Verified 12/09/22 15:12 [From Wellbutrin] Surgical History (Updated 12/09/22 @ 15:37 by Avis Luis) [place] teeth extracted Social History Smoking Status: Never smoker ROS ROS ED ROS Narrative Left abdominal pain. Nausea Review of Systems ROS Unobtainable: Denies due to encephalopathy Constitutional Constitutional ED: Denies chills or fever(s) ENT ENT ED: Denies ear pain Cardiovascular Cardiovascular: Denies chest pain Respiratory/Chest Respiratory/Chest: Denies cough or dyspnea Gastrointestinal Gastrointestinal: Reports abdominal pain and nausea; Denies constipation, diarrhea, melena or vomiting Genitourinary Genitourinary ED: Denies dysuria or hematuria Musculoskeletal Musculoskeletal: Denies arthralgias Integumentary Denies abscess Neurologic Neurologic: Denies headache(s) Psychiatric Psychiatric: Denies anxiety Endocrine Endocrinology: Denies polydipsia Hematologic/Lymphatic Hematologic/Lymphatic: Denies easy bleeding Allergic/Immunologic Allergic/Immunologic ED: Denies mouth swelling EXAM Physical Exam Narrative Exam Narrative: 2-year-old female no acute distress. Vital signs stable afebrile. Does not look septic toxic. HEENT exam unremarkable. Neck nontender no lymphadenopathy. Lungs clear to auscultation bilaterally. Heart regular rhythm no murmur. Abdomen soft nondistended normal bowel sounds no peritoneal signs. Minimal left periumbilical tenderness. No hernia or mass. No distention. Both the right upper right lower quadrant unremarkable. No suprapubic pain. Soft normal bowel sounds. Back nontender. Extremities unremarkable. Neurologically she is awake alert with no focal motor deficits. Const Vital Signs: 12/09/22 15:12 12/09/22 17:11 Temperature 98.4 F Temperature Source Temporal Pulse Rate 64 61 Respiratory Rate 18 16 Blood Pressure 117/59 L 106/66 Blood Pressure Mean 78 79 Pulse Ox 96 100 Oxygen Delivery Method Room Air Room Air Positive well nourished and well developed; Negative for cachectic, contractures or unkempt General Appearance ED: well developed and NAD; Negative for unkempt, cachectic, contractures or pallor Nutritional Appearance: Negative for cachectic HEENT Reports moist mucous membranes normocephalic and atraumatic; Negative for trauma or tenderness Eyes PERRL and EOMs intact bilaterally General Eye ED: Negative for pale conjunctiva Neck no lymphadenopathy, supple and no JVD General: Negative for tenderness Carotids: Negative for other Lymph Lymphatic: Negative for other Resp normal respiratory effort and clear to auscultation bilaterally Effort and Inspection: Negative for respiratory distress Auscultation: Negative for rales, rhonchi or wheezes Cardio regular rate, regular rhythm, S1 normal heart sound, S2 normal heart sound and no murmurs Rate: Negative for bradycardia or tachycardic Rhythm: Negative for abnormal rhythm GI non-distended and no masses; Negative for non-tender Inspection: abdominal distention Auscultation: normoactive bowel sounds Palpation: soft and tender; Negative for guarding, rigid, hepatomegaly, splenomegaly, hernia, mass, pulsatile mass or rebound tenderness present Back/Spine no CVA tenderness General Back: Negative for CVA tenderness Cervical Spine: Negative for cervical spine tenderness Thoracic Spine / Upper Back: Negative for thoracic spinal tenderness Lumbar Spine / Lower Back: Negative for lumbar spinal tenderness Coccyx: Negative for other Extremity full ROM General Extremety ED: Negative for edema or tenderness General Extremity: Negative for edema Neuro CN's II-XII intact bilaterally and moves all extremities Sensorium / Orientation: alert, oriented to person, oriented to place and oriented to time; Negative for orientation impaired, confused, lethargic or stuporous Motor Exam: strength 5/5 throughout Psych mental status grossly normal and thought process normal Appearance: Negative for unkempt Attitude: No agitated Mood & Affect: Negative for depressed, anxious or tearful Skin no wounds General Skin Exam: Negative for jaundice or pallor Lesions: no lesions Rashes: no rashes Trauma: Negative for abrasion Nails: Negative for discolored MDM MDM MDM Narrative Medical decision making narrative: 42-year-old female history of ovarian cyst with left-sided abdominal pain. Treated with Toradol for pain. Zofran for nausea and screening labs. I do not think she needs a CAT scan at this time. Repeat exam at 5:48 PM patient doing well. Still has some discomfort. We went over her labs. Patient requested ultrasound be done because she wants to know what is causing the pain. Her abdomen remains benign. There is no peritoneal signs. I will obtain a pelvic ultrasound. Repeat exam patient doing well at 7:15 PM. Abdomen is benign. She and I went over test results ultrasound showed a very small 1.4 cm left ovarian cyst and a posterior uterine fibroid. I explained to her that they may or may not be causing her discomfort neither one is very large. Her abdomen is benign currently. She will follow-up with her MEDICAL CLERICAL ASSISTANT at the [facility]. She will use Motrin and Tylenol for pain. History & Record Review Discussion w/independent historian: Patient Lab Data Attestation: I reviewed the patient's lab results. Lab results narrative: CBC unremarkable. White count of 5. H&H of 12 and 37. Platelets 247. CMP showed a gap of 4. Normal BUN and creatinine is 0.7. Glucose 95. Liver enzymes normal. Lipase normal at 34. test negative. Urinalysis negative. Labs: Laboratory Results - last 24 hr 12/09/22 12/09/22 15:40 16:03 WBC 5.3 RBC 4.18 L Hgb 12.5 Hct 37.1 MCV 88.8 MCH 29.9 MCHC 33.7 RDW Std Deviation 40.0 RDW Coeff of Alida 12.3 Plt Count 247 MPV 8.8 Immature Gran % (Auto) 0.200 Neut % (Auto) 59.6 Lymph % (Auto) 30.0 [place] % (Auto) 6.5 Eos % (Auto) 2.7 Baso % (Auto) 1.0 Absolute Neuts (auto) 3.1 Absolute Lymphs (auto) 1.58 Nucleated RBC % 0 Sodium 138 Potassium 3.9 Chloride 108 H Carbon Dioxide 26.0 Anion Gap 4 L BUN 12 Creatinine 0.75 Estim Creat Clear Calc 70.90 Est GFR (MDRD) Af Amer 109 Est GFR (MDRD) Non-Af 90 BUN/Creatinine Ratio 16.0 Glucose 95 Calcium 8.5 Total Bilirubin 0.60 AST 19 ALT 22 Alkaline Phosphatase 67 Total Protein 6.6 Albumin 3.5 Globulin 3.1 Albumin/Globulin Ratio 1.1 Lipase 34 Serum , Qual NEGATIVE Urine Color Yellow Urine Clarity Clear Urine pH 7.0 Ur Specific [place] 1.010 Urine Protein Negative Urine Glucose (UA) Normal Urine Ketones Negative Urine Occult Blood 150 H Urine Nitrite Negative Urine Bilirubin Negative Urine Urobilinogen Normal Ur Leukocyte Esterase Negative Urine RBC 0-5 SEEN Urine WBC 0 SEEN Ur Squamous Epith Cells 0-5 SEEN Urine Bacteria 0 SEEN Urine Mucus 0 SEEN Radiography Diagnostic Testing: Clinical Impression(s) from Imaging Studies Pelvis Ultrasound 12/09/22 17:50 IMPRESSION: No definite acute or significant abnormality seen. Electronically Signed: Hung Talavera MD at 18:56 EDT , Discharge Plan Triage Chief Complaint: Abd Pain ED Provider: Gregorio Cunha Dx/Rx/DC Orders Clinical Impression: Uterine fibroid, Ovarian cyst, Pelvic pain Instructions: Abdominal Pain Prescriptions: No Action fluoxetine 20 MG capsule 10 mg PO DAILY ondansetron 4 mg tablet,disintegrating 4 mg PO Q8H PRN (Reason: nausea and vomiting) Qty: 10 0RF Primary Care Provider: Blayne Blum Referrals: Blayne Blum DO [Primary Care Provider] - Andreina Luis MD [Med Staff - Active Staff] - As soon as possible Activity Restrictions/Additional Instructions: Call or follow-up with your MEDICAL CLERICAL ASSISTANT at the [facility]. You had a small left ovarian cyst and a uterine fibroid. May or may not be causing the pain neither 1 is very large. Tylenol and Motrin for pain. Disposition Disposition: Home, Self Care
[2022-12-09 15:46] LABS: Absolute Lymphocyte Count 1.58 X10^3/uL (0.83-4.51); Absolute Neutrophil Count 3.1 X10^3/uL (2.0-7.7); Basophil# 0.05 X10^3/uL; Eosinophil# 0.14 X10^3/uL; Eosinophils% 2.7 % (0-5); Hematocrit 37.1 % (37-47); Hemoglobin 12.5 g/dL (12.0-15.0); Lymphocyte # 1.58 X10^3/ul (0.83-4.51); Mean Corp Hgb Conc 33.7 g/dL (32-36); Mean Corpuscular Hgb 29.9 pg (27.0-32.0); Mean Corpuscular Volume 88.8 fL (81-99); Mean Platelet Vol. 8.8 fl (6.2-12.0); Monocyte# 0.34 X10^3/uL; Monocyte% 6.5 % (0-10); NRBC Flagged by Analyzer 0 % (0-5); Neutrophil # 3.14 X10^3/uL (2.7-7.7); Neutrophil % 59.6 % (47-70); Platelet Count 247 K/mm3 (150-450); RBC Distribution Width CV 12.3 % (11.6-14.6); Red Blood Count 4.18 M/mm3 (4.2-5.4); White Blood Count 5.3 K/mm3 (4.4-11.0)
[2022-12-09] MEDS: Ondansetron 4 MG/2 ML Vial IV (15:47)
[2022-12-09] MEDS: Ketorolac 15 MG/ML Vial IV (15:47)
[2022-12-09 16:03] LABS: ALB/GLOB Ratio 1.1 RATIO (0.9-2.4); AST(SGOT) 19 U/L (15-37); Alanine Aminotransfer ALT/SGPT 22 U/L (13-56); Albumin, Serum 3.5 g/dL (3.2-5.0); Alkaline Phosphatase 67 U/L (45-117); Anion Gap 4 (5-15); BUN 12 mg/dL (7-18); Calcium,Total 8.5 mg/dL (8.5-10.1); Chloride 108 mmol/L (98-107); Creatinine, Serum 0.75 mg/dL (0.55-1.02); EST Glomerular Filtration Rate 90 mL/min (>60); Est Glom Filt Rate - Afr Amer 109 mL/min (>60); Globulin 3.1 g/dL (2.2-4.2); Glucose 95 mg/dL (74-106); Lipase 34 U/L (13-75); Potassium 3.9 mmol/L (3.5-5.1); Protein, Total 6.6 g/dL (6.4-8.2); Sodium Level 138 mmol/L (136-145)
[2022-12-09 16:10] LABS: Bacteria 0 SEEN /hpf (None Seen); Mucous, Urine 0 SEEN /hpf (<or=2+); White Blood Cells 0 SEEN /hpf (0-5)
[2022-12-09 16:20] LABS: Color, Urine Yellow (Yellow); Glucose, Dipstick Normal (Normal); Ketone-Dipstick Negative (Negative); Leukocyte Esterase-Dipstick Negative /ul (Negative); Nitrite-Dipstick Negative (Negative); Occult Blood-Urine 150 /ul (Negative); Protein-Dipstick Negative (Negative); Urine Bilirubin Dipstick Negative (Negative); Urine Clarity Clear (Clear); Urine Urobilinogen Normal (Normal)
[2022-12-09 16:26] LABS: Red Blood Cells-Urine 0-5 SEEN /hpf (0-5); Squamous Epithelial Cells - UA 0-5 SEEN /hpf (5-10)
[2022-12-09 16:28] LABS: Internal QC Validated? YES +Cl - CLEAR BKGD; Pregnancy, Serum, hCG Quali. NEGATIVE Negative
[2022-12-09 17:11] VITALS: BP 106/66; PULSE 61; RESP 16; O2SAT 100
--- NOTE | 2022-12-09 17:50 | US_ITS ---
STUDY: ULTRASOUND OF THE FEMALE PELVIS - COMPLETE REASON FOR EXAM: Female, 42 years old. LLQ pelvic pain w/ cyst hx LMP: 12/05/2022 TECHNIQUE: Transabdominal TECHNICAL QUALITY: Adequate. COMPARISON: CT scan 09/11/2021. FINDINGS: The uterus is anteverted and is in a midline position. The uterus measures 8.0 x 4.9 x 3.7 cm. Normal uterine cervix. The endometrium measures 3 mm in thickness, and is hyperechoic. There is no demonstrated endometrial mass. There is an 8 mm posterior uterine fibroid. I.U.D. - The patient does not have an I.U.D. The right ovary is visualized. The right ovary measures 3.2 x 2.3 x 2.0 cm. There is no right ovarian cyst or ovarian mass. There is no visualized right adnexal mass or complex lesion. There is normal arterial and normal venous vascularity. The left ovary is visualized. The left ovary measures 2.9 x 1.9 x 1.5 cm. There is a 1.4 cm cyst. There is no visualized left adnexal mass or complex lesion. There is normal arterial and normal venous vascularity. There is no fluid in the cul-de-sac. Normal bladder contour. Polycystic ovary disease: No. US/Pelvic (Non ) IMPRESSION: No definite acute or significant abnormality seen. Electronically Signed: Hung Talavera MD at 18:56 EDT ,
[2022-12-09 19:17] VITALS: PULSE 69; RESP 16; O2SAT 98
== END 2022-12-09 19:26 | disposition home or self-care (01) ==
PROVIDERS: Emergency Provider Emergency Medicine; PCP Student in an Organized Health Care Education/Training Program; Visit Provider Emergency Medicine
DX: D25.9 Leiomyoma of uterus, unspecified (principal); N83.202 Unspecified ovarian cyst, left side; R10.2 Pelvic and perineal pain; F41.9 Anxiety disorder, unspecified; F32.A Depression, unspecified; Z79.899 Other long term (current) drug therapy
CPT/HCPCS: 76856; 80053; 81001; 83690; 84703; 85025; 93976; 96374; 96375; 99284; A4216; J2405

== ENCOUNTER 2023-10-06 18:09 | Emergency (ER) | payer MEDICAID, SELFPAY ==
[2023-10-06] VITALS (8 sets, daily range): BP systolic 115–125; BP diastolic 62–74; PULSE 64–88; RESP 12–18; TEMP 36.6–37; O2SAT 97–100; BMI 31.3
--- NOTE | 2023-10-06 19:24 | EKG12_ITS ---
Test Reason : Blood Pressure : / mmHG Vent. Rate : 057 BPM Atrial Rate : 057 BPM P-R Int : 172 ms QRS Dur : 074 ms QT Int : 416 ms P-R-T Axes : 066 051 039 degrees QTc Int : 404 ms Sinus bradycardia Otherwise normal ECG Confirmed by Austen Loya ([id number]), editorial cartoonist JACK PERDOMO ([id number]) on 10/07/2023 2:54:39 PM Referred By: Confirmed By:Austen Loya
--- NOTE | 2023-10-06 19:24 | CT_ITS ---
EXAM: CT ANGIOGRAPHY CHEST WITHOUT AND WITH INTRAVENOUS CONTRAST CLINICAL INDICATION: Pleuritic Pain TECHNIQUE: Helically acquired angiography images were obtained of the chest without and with intravenous contrast. This CT exam was performed using one or more of the following dose reduction techniques: automated exposure control, adjustment of the mA and/or kV according to patient size, and/or use of iterative reconstruction technique. MIP reconstructed images were created and reviewed. CONTRAST: IV 100mL [id number]-370 COMPARISON: Chest radiograph on the same date. FINDINGS: PULMONARY ARTERIES: No significant abnormality. Normal in caliber. No evidence of pulmonary embolism. AORTA: No significant abnormality. Normal in caliber. No evidence of dissection. GREAT VESSELS OF AORTIC ARCH: No significant abnormality. Normal in caliber. No evidence of dissection. LUNGS AND PLEURAL SPACES: No significant abnormality. No mass. No consolidation or edema. No pleural effusion or thickening. No pneumothorax. HEART: No significant abnormality. Heart size is normal. No pericardial effusion. No significant coronary artery calcifications. MEDIASTINUM: No significant abnormality. No mediastinal or hilar adenopathy. Esophagus is unremarkable. No hiatal hernia. THYROID: No significant abnormality. No thyroid lesions. BONES/JOINTS: No significant abnormality. No suspicious lytic or blastic abnormality. CT/CTA Chest W/WO Contrast IMPRESSION: No evidence of pulmonary artery embolus or other acute pathology in the chest. Electronically Signed: Valentín Ford DO at 20:22 EDT ,
--- NOTE | 2023-10-06 19:30 | ED.VIS.CHEST ---
HPI History of Present Illness Chief Complaint: Chest Pain Narrative Narrative: 42-year-old female presents with 2 weeks of chest pain. It was intermittent, but has become worse over the last 5 days. It started Thursday where she states that it is right-sided, pleuritic, and goes into her right arm. She saw her primary care provider and states that she had an outpatient CT scan performed. It was without contrast. She called her friend, Dr. Juan Pablo Huffman, who she states was able to look at the CT, but it was done without contrast. She states that he was concern for pulmonary embolism based on the description of her symptoms. She relates history that she had COVID and had chest pain at that time. She presents with concern for pulmonary embolism and pleuritic right-sided chest pain. [facility] Medical History Depression Anxiety Ovarian cyst Fibromyalgia Home Medications ?Medication ?Instructions ?Recorded ?Last Taken ?Type fluoxetine 20 mg capsule 10 mg PO DAILY 12/05/14 12/08/22 History ondansetron 4 mg disintegrating 4 mg PO Q8H PRN nausea and 09/11/21 Unknown Rx tablet vomiting #10 tabs Allergy/AdvReac Type Severity Reaction Status Date / Time bupropion HCl (From AdvReac Other Verified 10/06/23 18:12 Wellbutrin) Surgical History [place] teeth extracted Social History Smoking Status: Never smoker ROS ROS ED ROS Narrative Constitutional: No fever, no chills. HEENT: No sore throat. No neck pain. No loss of vision. No rhinorrhea. Cardiovascular: Right-sided chest pain with radiation to arm, right. Pleuritic. No palpitations. No pedal edema. Respiratory: No cough, positive shortness of breath. Abdominal: No abdominal pain. No nausea. No vomiting. Genitourinary: No dysuria. No hematuria. Musculoskeletal: No myalgias. No arthralgias. Neurologic: No headaches. No dizziness. No lightheadedness. Skin: No rash. No change in color. Psychiatric: No depression. No anxiety. EXAM Physical Exam Narrative Exam Narrative: Afebrile. Vital signs noted. HEENT: Normocephalic. Atraumatic. PERRL, EOMI. Neck soft and supple. No point tenderness or step off. Cardiovascular: Regular rate and rhythm. No murmurs, rubs, or gallops appreciated. Respiratory: No tachypnea. Lungs clear to auscultation bilaterally. Gastrointestinal: Abdomen soft, nontender, with normoactive bowel sounds. No rebound or guarding. Neurological: Awake. Alert. Nonfocal, nonlateralizing. Skin: No rash. Normal color. No pallor. Musculoskeletal: No pedal edema. Full range of motion extremities. Const Vital Signs: 10/06/23 18:09 10/06/23 18:10 10/06/23 19:43 Temperature 98.6 F Temperature Source Temporal Pulse Rate 83 Respiratory Rate 18 Respiratory Effort Normal Blood Pressure 120/72 Blood Pressure Mean 88 Pulse Ox 99 Oxygen Delivery Method Room Air Room Air 10/06/23 19:46 10/06/23 20:32 10/06/23 20:45 Temperature Temperature Source Pulse Rate 64 Respiratory Rate 13 Respiratory Effort Blood Pressure 115/74 124/67 H Blood Pressure Mean 87 83 Pulse Ox 98 99 Oxygen Delivery Method Room Air 10/06/23 20:46 10/06/23 21:00 10/06/23 21:01 Temperature Temperature Source Pulse Rate 88 Respiratory Rate 16 Respiratory Effort Blood Pressure 121/70 H Blood Pressure Mean 85 Pulse Ox 100 99 100 Oxygen Delivery Method Room Air 10/06/23 21:39 Temperature 98 F Temperature Source Pulse Rate 67 Respiratory Rate 12 Respiratory Effort Blood Pressure 125/62 H Blood Pressure Mean 83 Pulse Ox 97 Oxygen Delivery Method Heart Score History: Slightly/Non-Suspicious ECG: Normal Age: </= 45 years Risk Factors: No Risk Factors Score: 0 MDM MDM MDM Narrative Medical decision making narrative: In the differential diagnosis is ACS versus pulmonary embolism versus pneumothorax versus pneumonia. History and physical is not supportive of pneumothorax or pneumonia. Pulse ox is 99% on room air. She is not tachycardic. She is not hypoxic. However, with her concern for pulmonary embolism, although she is PERC negative, CTA will be obtained after negative . I will obtain EKG and lab work and I do feel that she does not require serial enzymes but with a single troponin should be sufficient as she has been having pain for 2 weeks. EKG was obtained and interpreted by myself independently as sinus bradycardia at 57 bpm without ectopy or acute ST changes. No STEMI. I reviewed her laboratory work and she has normal white count of 7.1, hemoglobin normal at 12.7, hematocrit 37.8, platelet count normal at 270. Electrolyte panel shows chloride slightly elevated at 108 which I think is nonspecific, anion gap low at 4, BUN normal at 11 with creatinine 0.77. High-sensitivity troponin is 4. I feel this is greater than a 6-hour troponin since she has been having increasing pain since Thursday if not longer. Serum is negative. Chest x-ray was obtained and 1 view interpreted by myself independently as no pneumonia, no pneumothorax. I reviewed the radiology report which confirms my independent interpretation. In order to fully rule out pulmonary embolism, CTA was obtained which shows no evidence of pulmonary embolism, no acute cardiopulmonary pathology. Repeat examination shows a resting comfortably on the cot and she is satting 100% on room air without evidence of hypoxia. At this point in time, I am unsure as to the cause of her pleuritic pain, but I do feel that as pulmonary embolism has been ruled out as well as pneumothorax, that she can be discharged to follow-up with her primary care provider. Return instructions to the emergency department were reviewed. [id number] medications should be sufficient for pain. Disposition is discharged home in stable condition. Lab Data Attestation: I reviewed the patient's lab results. Labs: Laboratory Results - last 24 hr 10/06/23 18:30 WBC 7.1 RBC 4.32 Hgb 12.7 Hct 37.8 MCV 87.5 MCH 29.4 MCHC 33.6 RDW Std Deviation 39.9 RDW Coeff of Alida 12.5 Plt Count 270 MPV 9.3 Immature Gran % (Auto) 0.300 Neut % (Auto) 63.9 Lymph % (Auto) 28.0 [place] % (Auto) 5.2 Eos % (Auto) 1.8 Baso % (Auto) 0.8 Absolute Neuts (auto) 4.5 Absolute Lymphs (auto) 1.99 Nucleated RBC % 0 Sodium 138 Potassium 3.7 Chloride 108 H Carbon Dioxide 26.0 Anion Gap 4 L BUN 11 Creatinine 0.77 Estim Creat Clear Calc 85.58 Est GFR (MDRD) Af Amer 106 Est GFR (MDRD) Non-Af 87 BUN/Creatinine Ratio 14.3 Glucose 84 Calcium 8.9 Troponin I High Sens 4 Serum , Qual NEGATIVE Radiography Diagnostic Testing: Clinical Impression(s) from Imaging Studies Chest CTA 10/06/23 19:24 IMPRESSION: No evidence of pulmonary artery embolus or other acute pathology in the chest. Electronically Signed: Valentín Ford DO at 20:22 EDT , Chest X-Ray 10/06/23 20:05 IMPRESSION: No radiographic evidence of acute cardiopulmonary disease. Electronically Signed: Valentín Ford DO at 20:21 EDT , Discharge Plan Triage Chief Complaint: Chest Pain ED Provider: Reynaldo Mathis Dx/Rx/DC Orders Clinical Impression: Chest pain, Pleurisy Instructions: ED Chest Pain, Uncertain Cause, ED Pleurisy Prescriptions: No Action fluoxetine 20 MG capsule 10 mg PO DAILY ondansetron 4 mg tablet,disintegrating 4 mg PO Q8H PRN (Reason: nausea and vomiting) Qty: 10 0RF Primary Care Provider: Blayne Blum Referrals: Blayne Blum DO [Primary Care Provider] - 3-5 Days if not improving Print Language: Argentine Disposition Disposition: Home, Self Care Discharge Date/Time: 10/06/23 21:42
[2023-10-06] MEDS: 0.9% Normal Saline (1000mL) 1,000 ML 999 ML IV (19:42)
[2023-10-06 19:50] LABS: Absolute Lymphocyte Count 1.99 X10^3/uL (0.83-4.51); Absolute Neutrophil Count 4.5 X10^3/uL (2.0-7.7); Basophil# 0.06 X10^3/uL; Basophil% 0.8 % (0-1); Eosinophil# 0.13 X10^3/uL; Eosinophils% 1.8 % (0-5); Hematocrit 37.8 % (37-47); Hemoglobin 12.7 g/dL (12.0-15.0); Lymphocyte # 1.99 X10^3/ul (0.83-4.51); Mean Corp Hgb Conc 33.6 g/dL (32-36); Mean Corpuscular Hgb 29.4 pg (27.0-32.0); Mean Corpuscular Volume 87.5 fL (81-99); Mean Platelet Vol. 9.3 fl (6.2-12.0); Monocyte# 0.37 X10^3/uL; Monocyte% 5.2 % (0-10); NRBC Flagged by Analyzer 0 % (0-5); Neutrophil # 4.53 X10^3/uL (2.7-7.7); Neutrophil % 63.9 % (47-70); Platelet Count 270 K/mm3 (150-450); RBC Distribution Width CV 12.5 % (11.6-14.6); RBC Distribution Width SD 39.9 fl (35.1-43.9); Red Blood Count 4.32 M/mm3 (4.2-5.4); White Blood Count 7.1 K/mm3 (4.4-11.0)
[2023-10-06 19:58] LABS: Internal QC Validated? YES +Cl - CLEAR BKGD; Pregnancy, Serum, hCG Quali. NEGATIVE Negative; Record Kit Lot#, Serum Preg. 735774
--- NOTE | 2023-10-06 20:05 | RAD_ITS ---
EXAM: XR CHEST, 1 VIEW CLINICAL INDICATION: chest pain TECHNIQUE: Frontal view of the chest. COMPARISON: CTA chest, 10/06/2023; chest radiograph, 12/05/2014 FINDINGS: LUNGS AND PLEURAL SPACES: No significant abnormality. No consolidation or edema. No pneumothorax. No effusion. HEART: No significant abnormality. Cardiac silhouette not enlarged. MEDIASTINUM: Central airways and mediastinal contour are unremarkable. BONES/JOINTS: No significant abnormality. No acute fracture. SOFT TISSUES: No significant abnormality. RAD/Chest 1 View (Portable) IMPRESSION: No radiographic evidence of acute cardiopulmonary disease. Electronically Signed: Valentín Ford DO at 20:21 EDT ,
[2023-10-06 20:10] LABS: Anion Gap 4 (5-15); BUN 11 mg/dL (7-18); BUN/Creat Ratio 14.3 RATIO (10-20); Calcium,Total 8.9 mg/dL (8.5-10.1); Chloride 108 mmol/L (98-107); Creatinine, Serum 0.77 mg/dL (0.55-1.02); EST Glomerular Filtration Rate 87 mL/min (>60); Est Glom Filt Rate - Afr Amer 106 mL/min (>60); Estimated Creatinine Clearance 85.58 ml/min; Glucose 84 mg/dL (74-106); Potassium 3.7 mmol/L (3.5-5.1); Sodium Level 138 mmol/L (136-145); Troponin-I HS 4 pg/mL (3.0-54.0)
== END 2023-10-06 21:42 | disposition home or self-care (01) ==
PROVIDERS: Emergency Provider Emergency Medicine; PCP Student in an Organized Health Care Education/Training Program; Visit Provider Emergency Medicine
DX: R07.9 Chest pain, unspecified (principal); R09.1 Pleurisy; Z86.16 Personal history of COVID-19
CPT/HCPCS: 71045; 71275; 80048; 84484; 84703; 85025; 93005; 96360; 99284; J7030; Q9967; A4216